=== PATIENT | female | born 1965 | race Caucasian/White ===

== ENCOUNTER 2021-09-18 12:00 | Outpatient (CLI) | payer MEDICAID ==
[2021-09-18 14:56] LABS: BASOPHILS % (AUTO) 0.5 % (0-1); EOSINOPHILS # (AUTO) 0.1 X10'3 (0-0.9); EOSINOPHILS % (AUTO) 1.4 % (0-6); LYMPHOCYTES # (AUTO) 2.3 X10'3 (1.1-4.8); LYMPHOCYTES % (AUTO) 37.7 % (21-51); MEAN CORPUSCULAR HEMOGLOBIN 30.7 PG (27.0-31.0); MEAN CORPUSCULAR HGB CONC 33.8 g/dL (33.0-36.5); MEAN CORPUSCULAR VOLUME 90.8 FL (78-98); MEAN PLATELET VOLUME 8.2 FL (7.4-10.4); MONOCYTES # (AUTO) 0.7 X10'3 (0-0.9); MONOCYTES % (AUTO) 11.8 % (2-12); NEUTROPHILS # (AUTO) 2.9 X10'3 (1.8-7.7); NEUTROPHILS % (AUTO) 48.6 % (42-75); PRE OP HEMATOCRIT 42.2 % (35.0-45.0); PRE OP HEMOGLOBIN 14.3 g/dL (12.0-16.0); PRE OP PLATELET COUNT 281 X10'3 (140-440); RED BLOOD COUNT 4.65 X10'6 (4.20-5.60); RED CELL DISTRIBUTION WIDTH 13.4 % (11.5-14.5)
[2021-09-18 15:09] LABS: ALBUMIN 4.3 G/DL (3.4-5.0); ALBUMIN/GLOBULIN RATIO 1.3 (1.1-1.5); ALKALINE PHOSPHATASE 95 IU/L (46-116); BLOOD UREA NITROGEN 15 MG/DL (7-18); BUN/CREATININE RATIO 17.6 (6.6-38.0); CALCIUM 9.2 MG/DL (8.5-10.1); CHLORIDE 103 MMOL/L (99-107); CREATININE 0.85 MG/DL (0.40-0.90); PRE OP ALT 34 U/L (30-65); PRE OP ANION GAP 13 (8-16); PRE OP AST 27 U/L (10-37); PRE OP BILIRUB, TOTAL 0.4 MG/DL (0.0-1.0); PRE OP GLUCOSE 89 MG/DL (70-104); PRE OP POTASSIUM 4.2 MMOL/L (3.4-5.1); PRE OP SODIUM 142 MMOL/L (135-145); TOTAL CARBON DIOXIDE 26.2 MMOL/L (24-32); TOTAL PROTEIN 7.6 G/DL (6.4-8.2); eGFR 69 ML/MIN
[2021-09-18] MEDS ORDERED: CHOL20004 PO (16:02)
[2021-09-18] MEDS ORDERED: [UNRECOGNIZED DRUG - CODE] PO (16:02)
[2021-09-18] MEDS ORDERED: BUPR-317 PO (16:02)
[2021-09-18] MEDS ORDERED: ZINC50TA67 PO (16:02)
[2021-09-18] MEDS ORDERED: MAGN250T11 PO (16:02)
[2021-09-18] MEDS ORDERED: OREG1500 PO (16:02)
[2021-09-18] MEDS ORDERED: MELA10TA2 PO (16:02)
[2021-09-18] MEDS ORDERED: PARO10TA4 PO (16:02)
[2021-09-18] MEDS ORDERED: OXYB5TAB16 PO (16:02)
[2021-09-18] MEDS ORDERED: PRAM0.129 PO (16:02)
[2021-09-18] MEDS ORDERED: PARO40TA4 PO (16:04)
== END 2021-09-18 23:59 | disposition home or self-care (01) ==
LOC: PRE-OP 12:00 → EDSTATUS 09-24 07:30
PROVIDERS: ATTEND Orthopaedic Surgery
DX: Z01.818 Encounter for other preprocedural examination (principal); G56.02 Carpal tunnel syndrome, left upper limb; M65.332 Trigger finger, left middle finger; F32.A Depression, unspecified; F41.9 Anxiety disorder, unspecified; G25.81 Restless legs syndrome; F43.10 Post-traumatic stress disorder, unspecified; Z98.890 Other specified postprocedural states; Z87.891 Personal history of nicotine dependence; Z87.442 Personal history of urinary calculi; Z87.11 Personal history of peptic ulcer disease; Z88.2 Allergy status to sulfonamides; Z72.89 Other problems related to lifestyle; Z79.899 Other long term (current) drug therapy
CPT/HCPCS: 36415; 80053; 85025; 93005

== ENCOUNTER 2021-09-18 14:37 | Emergency (ER) | payer MEDICAID ==
[2021-09-18] MEDS ORDERED: OXYB5TAB16 PO (16:02)
[2021-09-18] MEDS ORDERED: OREG1500 PO (16:02)
[2021-09-18] MEDS ORDERED: PARO10TA4 PO (16:02)
[2021-09-18] MEDS ORDERED: PRAM0.129 PO (16:02)
[2021-09-18] MEDS ORDERED: CHOL20004 PO (16:02)
[2021-09-18] MEDS ORDERED: ZINC50TA67 PO (16:02)
[2021-09-18] MEDS ORDERED: BUPR-317 PO (16:02)
[2021-09-18] MEDS ORDERED: MELA10TA2 PO (16:02)
[2021-09-18] MEDS ORDERED: MAGN250T11 PO (16:02)
[2021-09-18] MEDS ORDERED: [UNRECOGNIZED DRUG - CODE] PO (16:02)
[2021-09-18] MEDS ORDERED: PARO40TA4 PO (16:04)
== END 2021-09-18 18:05 | disposition left against medical advice (07) ==
LOC: ER 14:41
DX: M25.529 Pain in unspecified elbow (principal); Z53.21 Procedure and treatment not carried out due to patient leaving prior to being seen by health care provider